=== PATIENT | male | born 1995 | race Caucasian/White ===

== ENCOUNTER 2017-11-24 19:15 | Emergency (ER) | payer SELFPAY | END 2017-11-24 19:35 | disposition home or self-care (01) | LOC: MADERS 19:15 | DX: R21 Rash and other nonspecific skin eruption (principal); F98.8 Other specified behavioral and emotional disorders with onset usually occurring in childhood and adolescence; F17.210 Nicotine dependence, cigarettes, uncomplicated | CPT/HCPCS: 99281 ==